=== PATIENT | male | born 1950 | race African-American/Black ===

== ENCOUNTER 2018-09-20 09:55 | Emergency (ER) | payer BC, MEDICAID, MEDICARE ==
[~2018-09-20] VITALS: Ht 188 cm; Wt 97.5 kg
[~2018-09-20 09:55] MED LIST: ALLO300T2 PO; ALPR1TAB2 PO; ASPI-807 PO; BUPR300T54 PO; CAPT25TA3 PO; CARV3.122 PO; CITA40TA11 PO; DIVA-76 PO; DIVA500T4 PO; MULT-1168 PO; SIMV20TA6 PO
[2018-09-20] MEDS ORDERED: LORAZEPAM INJ 2 MG/ML VIAL IM ONE (10:00)
--- NOTE | 2018-09-20 10:00 | NUR ---
68 YEAR OLD MALE BIBRA 87 FROM HOME "IM HAVING A PANIC ATTACK" ALERT AND OREITNED X2-3. BREATHING EVEN AND UNALBORED. PATIENT IS ABLE TO AMBULATE. AWAITNG TO BE SEEN BY
[2018-09-20] MEDS ORDERED: LORAZEPAM INJ 2 MG/ML VIAL ONE (10:02)
[2018-09-20 10:10] LABS: BASOPHILS % (AUTO) 0.3 % (0.0-2.0); EOSINOPHILS % (AUTO) 0.6 % (0.0-6.0); HEMATOCRIT 48 % (39-51); HEMOGLOBIN 16.1 g/dL (13.5-17.5); LYMPHOCYTES # (AUTO) 1.1 /CMM (0.8-4.8); LYMPHOCYTES % (AUTO) 11.4 % (20.0-44.0); MEAN CORPUSCULAR HGB CONC 33 g/dl (31.0-36.0); MEAN CORPUSCULAR VOLUME 93 fL (80-96); MONOCYTES # (AUTO) 0.6 /CMM (0.1-1.30); MONOCYTES % (AUTO) 6.1 % (2.0-12.0); NEUTROPHILS # (AUTO) 7.9 /CMM (1.8-8.9); NEUTROPHILS % (AUTO) 81.6 % (43.0-81.0); PLATELET COUNT (AUTO) 196 /CMM (150-450); RED BLOOD CELL COUNT(AUTO) 5.21 MIL/uL (4.5-6.0); WHITE BLOOD COUNT (AUTO) 9.7 K/uL (4.3-11.0)
[2018-09-20 10:16] LABS: CALCIUM, SERUM 9.5 mg/dL (8.5-10.1); CARBON DIOXIDE 26 mmol/L (21-32); CHLORIDE 103 mmol/L (98-107); CREATININE 1.2 mg/dL (0.6-1.3); GLUCOSE 208 mg/dL (74-106); POTASSIUM 3.7 mmol/L (3.5-5.1); SODIUM SERUM 141 mmol/L (136-145); UREA NITROGEN, BLOOD 15 mg/dL (7-18)
[2018-09-20] MEDS ORDERED: OLANZAPINE 5 MG TABLET ONE (10:25)
[2018-09-20 10:29] LABS: ACETAMINOPHEN 0 ug/ml (10-30); ALANINE AMINOTRANSFERASE 19 U/L (12-78); ALBUMIN 3.5 g/dL (3.4-5.0); ALCOHOL, BLOOD < 3 mg/dL (0-0); ALKALINE PHOSPHATASE 61 U/L (46-116); ASPARTATE AMINOTRANSFERASE 17 U/L (15-37); BILIRUBIN,DIRECT 0.2 mg/dL (0.0-0.2); BILIRUBIN,TOTAL 1.2 mg/dL (0.2-1.0); TOTAL PROTEIN, SERUM 7.5 g/dL (6.4-8.2)
[2018-09-20] MEDS ORDERED: OLANZAPINE 5 MG TABLET PO ONE (10:30)
--- NOTE | 2018-09-20 12:02 | NUR ---
WAITING FOR TAXI TO STOCK TRANSFER CLERK PATIENT WITH VOUCHER
[2018-09-20 12:24] VITALS: BP 115/70
== END 2018-09-20 12:15 | disposition home or self-care (01) ==
LOC: ER 09:55
DX: F41.9 Anxiety disorder, unspecified (principal); I10 Essential (primary) hypertension; E11.9 Type 2 diabetes mellitus without complications; Z95.818 Presence of other cardiac implants and grafts; Z79.82 Long term (current) use of aspirin; Z79.899 Other long term (current) drug therapy
CPT/HCPCS: 36415; 80048; 80076; 80307; 80329; 85025; 96372; 99284; G0480; J2060